=== PATIENT | male | born 1990 | race Caucasian/White ===

== ENCOUNTER 2019-07-10 10:59 | Outpatient (CLI) | payer BC ==
--- NOTE | 2019-07-10 11:22 | RAD ---
3 views of the cervical spine: 07/10/2019 COMPARISON: None HISTORY: Evaluate cervical spine following surgery FINDINGS: Anterior discectomy and fusion hardware present, spanning the C5-6, C6-7, and C7-T1 levels. Open-mouth odontoid view demonstrates a normal-appearing dens and C1-2 articulation. There is no evidence for hardware failure or prevertebral soft tissue swelling. There is an intervertebral disc d evice at C5-6. There is irregularity of the superior endplate of C7 which may signify prior fracture. No comparison imaging is available. IMPRESSION: Postoperative changes of the lower cervical cervical and upper thoracic spine as above.
== END 2019-07-10 11:00 | disposition home or self-care (01) ==
LOC: SCSRAD 10:59
DX: Z47.89 Encounter for other orthopedic aftercare (principal); Z98.1 Arthrodesis status
CPT/HCPCS: 72040

== ENCOUNTER 2019-08-07 13:04 | Outpatient (CLI) | payer BC ==
--- NOTE | 2019-08-07 14:46 | RAD ---
CERVICAL SPINE 4 VIEWS: Date: 08/07/19 HISTORY: Postop follow-up. COMPARISON: 07/10/19. FINDINGS: Anterior plate and screws at C5, C6, C7, and T1 again noted. Interbody disc implant at C5-6 is unchan ged in position. Posterior alignment is maintained. No change from the prior exam. IMPRESSION: Stable postop changes. POS: OZZY
== END 2019-08-07 13:05 | disposition home or self-care (01) ==
LOC: SCSRAD 13:04
DX: Z47.89 Encounter for other orthopedic aftercare (principal); Z98.890 Other specified postprocedural states
CPT/HCPCS: 72040

== ENCOUNTER 2021-09-16 12:21 | Outpatient (CLI) | payer BC | END 2021-09-16 12:22 | disposition home or self-care (01) | LOC: BICULT 12:21 | PROVIDERS: ATTEND Family Medicine | DX: N50.89 Other specified disorders of the male genital organs (principal); N50.3 Cyst of epididymis | CPT/HCPCS: 76870; 93976 ==

== ENCOUNTER 2022-10-12 09:39 | Day surgery (SDC) | payer BC ==
[2022-10-09 12:16] VITALS: BMI 21.4
[2022-10-12] MEDS ORDERED: Sodium Chloride 0.9% 100 ML ONE (10:44)
[2022-10-12] MEDS ORDERED: cefOXitin 2 GM VIAL ONE (10:44)
[2022-10-12] MEDS ORDERED: Midazolam HCl 2 mg/2 ml Vial ONE (11:38)
[2022-10-12] MEDS ORDERED: fentaNYL PF 100 MCG/2 ML SYRINGE ONE (11:39)
[2022-10-12] MEDS ORDERED: Bupivacaine/Epinephrine 0.25% 30 ML VIAL ONE (11:45)
[2022-10-12] MEDS ORDERED: Lidocaine 2% 6 ML SYR ONE (12:24)
[2022-10-12] MEDS ORDERED: Dexamethasone 20 MG/5 ML VIAL ONE (12:27)
[2022-10-12] MEDS ORDERED: GLYCOPYRROLATE/PF 0.2 MG/ML VIAL ONE (12:27)
[2022-10-12] MEDS ORDERED: Rocuronium Bromide 10 MG/ML (10ML VIAL) ONE (12:27)
[2022-10-12] MEDS ORDERED: PROPOFOL 200 MG/20 ML VIAL ONE (12:27)
[2022-10-12] MEDS ORDERED: Ondansetron PF 4 MG/2 ML Vial ONE (12:27)
[2022-10-12] MEDS ORDERED: NEOSTIGMINE 3 MG/3 ML SYR 3 MG/3 ML SYRINGE ONE (12:27)
[2022-10-12] MEDS ORDERED: FENTANYL 50 MCG/ML 1 ML VIAL ONE ×3 (13:28→13:47)
[2022-10-12] MEDS ORDERED: HYDROcodone/Acetaminophen 5/325 mg Tablet ONE (14:42)
[2022-10-12] MEDS ORDERED: Acetaminophen 325 MG TAB ONE (14:42)
== END 2022-10-12 15:00 | disposition home or self-care (01) ==
LOC: SDC 09:39
PROVIDERS: ATTEND Surgery
PROC: 06BY3ZC Excision of Hemorrhoidal Plexus, Percutaneous Approach (ICD-10-PCS; principal; 2022-10-12)
DX: K64.8 Other hemorrhoids (principal); F17.210 Nicotine dependence, cigarettes, uncomplicated; Z79.899 Other long term (current) drug therapy
CPT/HCPCS: 88304; J0694; J1100; J2250; J2405; J2704; J3010; J3490

== ENCOUNTER 2022-10-12 18:03 | Emergency (ER) | payer BC ==
[2022-10-12 22:30] LABS: #Lymphocytes 0.6 thou/uL (1.20-3.40); #Monocytes 0.3 thou/uL (0.11-0.59); #Neutrophils 7.5 thou/uL (1.40-6.50); %Basophils 0.1 % (0.0-1.0); %Eosinophils 0.1 % (0.0-10.0); %Lymphocytes 6.8 % (21.0-51.0); %Monocytes 3.3 % (0.0-10.0); %Neutrophils 89.7 % (42.0-75.0); Hemoglobin 15.2 g/dL (14.0-18.0); Mean Corpuscular HGB CONC 33.1 g/dL (32.0-36.0); Mean Corpuscular Hemoglobin 32.1 pg (27.0-31.0); Mean Corpuscular Volume 96.8 fl (78.0-98.0); Mean Platelet Volume 9.5 fL (7.4-10.4); Platelet Count 165 10x3/uL (130-400); RBC Distribution Width 12.4 % (11.5-14.5); Red Blood Cell (RBC) Count 4.74 mill/uL (4.70-6.10); White Blood Cell (WBC) Count 8.3 10x3/uL (4.8-10.8)
[2022-10-12 22:50] LABS: ALT (SGPT) 13 U/L (8-55); AST (SGOT) 15 U/L (5-34); Albumin 4.5 g/dL (3.5-5.0); Alkaline Phosphatase 59 U/L (40-110); Anion Gap 12 mmol/L (10-20); BUN (Urea Nitrogen) 8 mg/dL (8.9-20.6); Bilirubin, Total 1.3 mg/dL (0.2-1.2); Calc. Creatinine Clearance 0 mL/min (70-130); Calcium 9.1 mg/dL (7.8-10.44); Carbon Dioxide 27 mmol/L (22-29); Chloride 105 mmol/L (98-107); Estimated GFR 114; Globulin 2.4 g/dL (2.4-3.5); Glucose 114 mg/dL (70-105); Protein, Total 6.9 g/dL (6.0-8.3); Sodium 139 mmol/L (136-145)
[2022-10-12 22:50] LABS: Bacteria/HPF None Seen HPF (None Seen); Bilirubin Negative (Negative); Blood, Urine Trace (Negative); Clarity Clear (Clear); Glucose, Urine (Dipstick) Normal (Negative); Ketone, Urine 10 mg/dL (Negative); Leukocyte Negative Leu/uL (Negative); Nitrite Negative (Negative); Protein, Urine (Dipstick) Negative (Neg-Trace); RBC/HPF None Seen HPF (0-3); Specific Gravity, Urine 1.007 (1.002-1.036); Squamous Epithelial None Seen HPF (0-3); Urobilinogen Normal mg/dL (Less than 2); WBC/HPF 0-3 HPF (0-3); pH, Urine 5.5 (5.0-9.0)
== END 2022-10-12 23:41 | disposition home or self-care (01) ==
LOC: ERS 18:03
DX: R33.9 Retention of urine, unspecified (principal)
CPT/HCPCS: 36415; 51702; 80053; 81003; 81015; 85025; 87086

== ENCOUNTER 2022-10-15 14:54 | Emergency (ER) | payer BC ==
[2022-10-15 17:36] LABS: #Basophils 0.1 thou/uL (0.0-0.2); #Eosinphils 0.1 thou/uL (0.0-0.7); #Lymphocytes 1.1 thou/uL (1.20-3.40); #Monocytes 0.6 thou/uL (0.11-0.59); #Neutrophils 6.3 thou/uL (1.40-6.50); %Basophils 0.6 % (0.0-1.0); %Eosinophils 1.6 % (0.0-10.0); %Lymphocytes 13.3 % (21.0-51.0); %Monocytes 7.6 % (0.0-10.0); %Neutrophils 76.9 % (42.0-75.0); Hemoglobin 15.2 g/dL (14.0-18.0); Mean Corpuscular HGB CONC 34.1 g/dL (32.0-36.0); Mean Corpuscular Hemoglobin 32.8 pg (27.0-31.0); Mean Corpuscular Volume 96.2 fl (78.0-98.0); Mean Platelet Volume 9.8 fL (7.4-10.4); Platelet Count 143 10x3/uL (130-400); RBC Distribution Width 12.3 % (11.5-14.5); Red Blood Cell (RBC) Count 4.63 mill/uL (4.70-6.10); White Blood Cell (WBC) Count 8.2 10x3/uL (4.8-10.8)
[2022-10-15 17:48] LABS: ALT (SGPT) 13 U/L (8-55); AST (SGOT) 13 U/L (5-34); Albumin 4.5 g/dL (3.5-5.0); Alkaline Phosphatase 62 U/L (40-110); Anion Gap 14 mmol/L (10-20); BUN (Urea Nitrogen) 5 mg/dL (8.9-20.6); Bilirubin, Total 0.6 mg/dL (0.2-1.2); Calc. Creatinine Clearance 0 mL/min (70-130); Calcium 9.4 mg/dL (7.8-10.44); Carbon Dioxide 27 mmol/L (22-29); Chloride 104 mmol/L (98-107); Estimated GFR 119; Globulin 2.7 g/dL (2.4-3.5); Glucose 100 mg/dL (70-105); Potassium 4.5 mmol/L (3.5-5.1); Protein, Total 7.2 g/dL (6.0-8.3); Sodium 140 mmol/L (136-145)
[2022-10-15 20:00] LABS: Bilirubin Negative (Negative); Blood, Urine Negative (Negative); Clarity Clear (Clear); Glucose, Urine (Dipstick) Normal (Negative); Ketone, Urine 10 mg/dL (Negative); Leukocyte Negative Leu/uL (Negative); Nitrite Negative (Negative); Protein, Urine (Dipstick) Negative (Neg-Trace); Specific Gravity, Urine 1.008 (1.002-1.036); Urobilinogen Normal mg/dL (Less than 2); pH, Urine 7.5 (5.0-9.0)
== END 2022-10-15 20:50 | disposition home or self-care (01) ==
LOC: ERS 14:54
DX: R33.9 Retention of urine, unspecified (principal); F17.210 Nicotine dependence, cigarettes, uncomplicated
CPT/HCPCS: 36415; 51701; 74018; 80053; 81003; 85025